=== PATIENT | female | born 1995 | race Caucasian/White ===

== ENCOUNTER 2020-07-14 18:09 | Emergency (ER) | payer OTHER, SELFPAY ==
--- NOTE | ~2020-07-14 | XR_ITS ---
EXAMINATION: XR CHEST CLINICAL INFORMATION: Syncope COMPARISON: 11/04/2019 TECHNIQUE: 2 views of the chest were obtained. FINDINGS: No significant abnormality is noted involving the heart, lungs, mediastinum, bony thorax or soft tissues. The last time the patient had a syncopal episode, the chest radiograph was normal as well. XR/XR chest 2V IMPRESSION: Normal chest radiograph.
--- NOTE | ~2020-07-14 | CT_ITS ---
EXAMINATION: CT HEAD WITHOUT CONTRAST CLINICAL INFORMATION: Syncope COMPARISON: None TECHNIQUE: Contiguous axial imaging was performed from the skull base to vertex without intravenous administration of contrast. This CT examination was performed using dose optimization techniques as appropriate, variously including the following: *Automated exposure control *Adjustment of mA and/or kV according to patient size (this includes techniques or standardized protocols for targeted exams where dose is matched to indication/reason for exam; i.e. extremities or head) *Use of iterative reconstruction technique DLP: 589 mGy-cm FINDINGS: There is no evidence of acute intracranial hemorrhage or territorial infarction. No abnormal mass effect or midline shift is seen. [place] to white matter differentiation is well preserved. No extra-axial fluid collections are identified. The ventricles are normal in size. There is no abnormal attenuation within the brain parenchyma. The osseous structures and soft tissues are normal. The mastoid air cells and visualized portions of the paranasal sinuses are well aerated. CT/CT head/brain wo con IMPRESSION: No acute intracranial pathology.
[2020-07-14 18:17] VITALS: BP 109/81; PULSE 77; RESP 18; TEMP 37.2; O2SAT 98; BMI 20.2
--- NOTE | 2020-07-14 19:22 | ECG_ITS ---
Test Reason : SYNCOPE Blood Pressure : / mmHG Vent. Rate : 072 BPM Atrial Rate : 072 BPM P-R Int : 108 ms QRS Dur : 078 ms QT Int : 372 ms P-R-T Axes : 050 052 036 degrees QTc Int : 407 ms Sinus rhythm with short [place] Otherwise normal ECG When compared with ECG of 04-NOV-2019 19:26, No significant change was found Referred By: Generic ED Physician Electronically Signed By:ESTEFANÍA EDUARDO
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
--- NOTE | 2020-07-14 20:32 | PC.NURSE ---
PT TO [facility] AT BEDSIDE. EKG OBTAINED. PT ARRIVES ALERT, RESPIRATIONS EASY, N/L. SKIN W/D.
[2020-07-14 20:51] LABS: MANUAL DIFF FLAG NO
[2020-07-14 20:52] LABS: Basophils Percent Auto 0.3 % (0-2); Eosinophils Absolute Auto 0.4 X10*3/uL (0.0-0.4); Eosinophils Percent Auto 5.3 % (0-4); Hematocrit 40.9 % (37-47); Hemoglobin 13.5 g/dl (12.0-16.0); Imm Gran Abs Auto 0.01 X10*3/uL (0.00-0.03); Imm Gran Pct Auto 0.2 % (0.0-0.4); Lymphocytes Percent Auto 30.2 % (20-40); Mean Corpuscular Hemoglobin 28.5 pg (27.0-33.0); Mean Corpuscular Volume 86.5 fL (80-98); Mean Platelet Volume 10.3 fL (9.4-12.3); Monocytes Absolute Auto 0.5 X10*3/uL (0.1-1.2); Monocytes Percent Auto 8.1 % (2-11); Neutrophils Absolute Auto 3.7 X10*3/uL (2.0-8.3); Neutrophils Percent Auto 55.9 % (45-73); Platelet Count 208 X10*3/uL (160-400); Red Blood Count 4.73 X10*6/uL (4.20-5.50); Red Cell Distribution Width 12.6 % (11.0-16.0); White Blood Count 6.7 X10*3/uL (4.8-10.8)
[2020-07-14 20:58] LABS: UPreg QC Valid YES; Urine Pregnancy NEGATIVE (NEGATIVE)
[2020-07-14 21:21] LABS: Anion Gap 13 (12-20); Blood Urea Nitrogen 8 mg/dL (9-16); Calcium 9.6 mg/dL (8.4-10.2); Carbon Dioxide 24 mmol/L (22-29); Chloride 107 mmol/L (96-108); Estimated Glomerular Filt Rate > 60; Glucose Random 85 mg/dL (60-115); Sodium 140 mmol/L (135-145)
[2020-07-14 21:23] LABS: Troponin-I High Sensitivity < 3.5 ng/L (<3.5-17.0)
[2020-07-14 21:23] LABS: Amphetamine Screen Urine Not Detected (Not Detect); Barbiturates, Urine Not Detected (Not Detect); Benzodiazepines Screen Urine Not Detected (Not Detect); Cannabinoid Screen Urine POSITIVE (Not Detect); Cocaine Screen Urine Not Detected (Not Detect); Opiate Screen Urine Not Detected (Not Detect); Phencyclidine Screen Urine Not Detected (Not Detect)
== END 2020-07-14 22:44 | disposition home or self-care (01) ==
PROVIDERS: Nurse Practitioner Primary Care; Emergency Provider Internal Medicine
DX: R55 Syncope and collapse (principal); F41.9 Anxiety disorder, unspecified; F12.90 Cannabis use, unspecified, uncomplicated
CPT/HCPCS: 36415; 70450; 71046; 80048; 80307; 81025; 84443; 84484; 85025; 93005; 99283; 99284

== ENCOUNTER 2022-12-06 17:46 | Emergency (ER) | payer OTHER, SELFPAY ==
[2022-12-06 18:00] VITALS: BP 129/72; PULSE 88; RESP 18; TEMP 36.7; O2SAT 99; BMI 23.0
--- NOTE | 2022-12-06 18:02 | ECG_ITS ---
Test Reason : EPIGASTRIC Blood Pressure : / mmHG Vent. Rate : 079 BPM Atrial Rate : 079 BPM P-R Int : 122 ms QRS Dur : 078 ms QT Int : 362 ms P-R-T Axes : 054 048 028 degrees QTc Int : 415 ms Normal sinus rhythm Normal ECG When compared with ECG of 14-JUL-2020 20:35, No significant change was found Referred By: Chip Vega Electronically Signed By:ABEBE SORIA
--- NOTE | 2022-12-06 18:02 | ED.GENADULT ---
HPI - General Adult General Chief complaint: Abdominal Pain Stated complaint: Stomach pain Time Seen by Provider: 12/06/22 20:09 Related Data Allergies Allergy/AdvReac Type Severity Reaction Status Date / Time dog dander [DOGS] Allergy Unknown UNKNOWN Verified 07/14/20 18:16 [facility] Social History Social History Advance Directives: No Advance Directives Information Provided: No Physical Exam ED Vital Signs: BMI result Body Mass Index 23.0 Course Course Course Narrative: This is an RME: Additional HPI, ROS, PE not included below will be deferred to primary provider. 27 yo F presents w/ sudden onset epigastri pain reports drinking alcohol last night. No n/v/d. No cardiac hx. Denies CP, sob, chances of preg, fevers, chills PE benign Medical Decision Making Lab Data 12/06/22 18:12 12/06/22 18:12 Labs: Lab Results 12/06/22 Range/Units 18:12 WBC 8.1 (4.8-10.8) X10*3/uL RBC 4.86 (4.20-5.50) X10*6/uL Hgb 13.6 (12.0-16.0) g/dl Hct 41.3 (37.0-47.0) % MCV 85.0 (80.0-98.0) fL MCH 28.0 (27.0-33.0) pg MCHC 32.9 (31.0-35.0) g/dl RDW 12.5 (11.0-16.0) % Plt Count 244 (160-400) X10*3/uL MPV 9.7 (9.4-12.3) fL Immature Gran % (Auto) 0.2 (0.0-0.4) % Neut % (Auto) 57.0 (45-73) % Lymph % (Auto) 28.9 (20-40) % [place] % (Auto) 8.0 (2-11) % Eos % (Auto) 5.8 H (0-4) % Baso % (Auto) 0.1 (0-2) % Lymph # (Auto) 2.4 (1.2-4.9) X10*3/uL [place] # (Auto) 0.7 (0.1-1.2) X10*3/uL Eos # (Auto) 0.5 H (0.0-0.4) X10*3/uL Baso # (Auto) 0.0 (0.0-0.2) X10*3/uL Abs Immat Gran (auto) 0.02 (0.00-0.03) X10*3/uL Absolute Neuts (auto) 4.6 (2.0-8.3) x10*3/uL Absolute Nucleated RBC 0.000 (0.0-0.012) X10*3/uL Nucleated RBC % (auto) 0.0 (0.0-0.2) /100WBC Sodium 138 (135-145) mmol/L Potassium 3.5 (3.3-5.1) mmol/L Chloride 105 (96-108) mmol/L Carbon Dioxide 26 (22-29) mmol/L Anion Gap 11 L (12-20) BUN 12 (9-16) mg/dL Creatinine 0.79 (0.5-1.4) mg/dL Estim Creat Clear Calc 76.4 Estimated GFR > 60 Random Glucose 90 (60-115) mg/dL Calcium 9.6 (8.4-10.2) mg/dL Magnesium 2.1 (1.6-2.6) mg/dL Total Bilirubin 0.3 (0.0-1.0) mg/dL AST 17 (5-31) U/L ALT 7 (0-31) U/L Alkaline Phosphatase 56 (39-117) U/L Troponin I High Sens < 2.7 (<3.5-17.0) ng/L Total Protein 7.2 (6.5-8.0) g/dL Albumin 4.4 (3.5-5.0) g/dL Lipase 28 (8-78) U/L Beta HCG, Quant < 2 mIU/mL Ethyl Alcohol < 10 mg/dL Discharge Plan Discharge Clinical Impression: Eloped from emergency department Patient Disposition: Left W/O Completing Treatment Discharge Date/Time: 12/06/22 21:35
--- OUTSIDE RECORDS SUMMARY | 2022-12-06 18:14 | XMS_ITS | Patient Health Record ---
Author Name Unknown Organization [facility] Address [address] [place] [address] Care Team Providers Care Employment And Claims Aide Name Role Phone OmidjoelleVito Unavailable [phone] ALLERGIES No Known Allergies REASON FOR REFERRAL No Information SOCIAL HISTORY Sex Assigned At : Social History Observation Description Sex Assigned At Unknown PROBLEMS Problem Type ICD Code Onset Dates Problem Status W/U Status Risk SNOMED Code Notes Problem Allergic rhinitis, unspecified (J30.9) Active confirmed Allergic rhinitis (88698902) Encounters Encounter Location Date Provider Diagnosis [facility] [address] [place] [address] 04/08/2022 Vito Mckeon PLAN OF TREATMENT No Information Insurance Providers Payer Name Payer Address Payer Phone Subscriber Number Group Number Insured Name Patient Relationship to Insured Coverage Start Date Coverage End Date [facility] [employer] [address] [address] [place] [address] [id number] Jessica Lara Self - patient is the insured
[2022-12-06 18:16] LABS: MANUAL DIFF FLAG NO
[2022-12-06 18:28] LABS: Basophils Percent Auto 0.1 % (0-2); Eosinophils Absolute Auto 0.5 X10*3/uL (0.0-0.4); Eosinophils Percent Auto 5.8 % (0-4); Hematocrit 41.3 % (37.0-47.0); Hemoglobin 13.6 g/dl (12.0-16.0); Imm Gran Abs Auto 0.02 X10*3/uL (0.00-0.03); Imm Gran Pct Auto 0.2 % (0.0-0.4); Lymphocytes Absolute Auto 2.4 X10*3/uL (1.2-4.9); Lymphocytes Percent Auto 28.9 % (20-40); Mean Corpuscular HGB Conc 32.9 g/dl (31.0-35.0); Mean Platelet Volume 9.7 fL (9.4-12.3); Monocytes Absolute Auto 0.7 X10*3/uL (0.1-1.2); Neutrophils Absolute Auto 4.6 x10*3/uL (2.0-8.3); Platelet Count 244 X10*3/uL (160-400); Red Blood Count 4.86 X10*6/uL (4.20-5.50); Red Cell Distribution Width 12.5 % (11.0-16.0); White Blood Count 8.1 X10*3/uL (4.8-10.8)
[2022-12-06 18:30] LABS: Ethanol < 10 mg/dL
[2022-12-06 18:40] LABS: Alanine Aminotransferase 7 U/L (0-31); Albumin Level 4.4 g/dL (3.5-5.0); Alkaline Phosphatase 56 U/L (39-117); Anion Gap 11 (12-20); Aspartate Amino Transferase 17 U/L (5-31); Bilirubin Total 0.3 mg/dL (0.0-1.0); Blood Urea Nitrogen 12 mg/dL (9-16); Calcium 9.6 mg/dL (8.4-10.2); Carbon Dioxide 26 mmol/L (22-29); Chloride 105 mmol/L (96-108); Creatinine Clr Calc Pharmacy 76.4; Estimated Glomerular Filt Rate > 60; Glucose Random 90 mg/dL (60-115); Lipase 28 U/L (8-78); Magnesium 2.1 mg/dL (1.6-2.6); Potassium 3.5 mmol/L (3.3-5.1); Sodium 138 mmol/L (135-145); Total Protein 7.2 g/dL (6.5-8.0)
[2022-12-06 18:41] LABS: HCG Quantitative < 2 mIU/mL; Troponin-I High Sensitivity < 2.7 ng/L (<3.5-17.0)
== END 2022-12-06 21:35 | disposition left against medical advice (07) ==
PROVIDERS: Physician Assistant; Emergency Provider Emergency Medicine
DX: R07.89 Other chest pain (principal); R10.13 Epigastric pain; Z79.899 Other long term (current) drug therapy
CPT/HCPCS: 36415; 80053; 80307; 83690; 83735; 84484; 84702; 85025; 93005; 99283

== ENCOUNTER 2024-11-30 10:46 | Emergency (ER) | payer OTHER, SELFPAY ==
--- NOTE | ~2024-11-30 | XR_ITS ---
CLINICAL HISTORY: ? fb rt thumb Three-view right 1st digit Comparison: None Findings: Bones intact. No dislocations. No significant loss of joint space or osteophytes. No erosions. No radiopaque foreign body. IMPRESSION: There is no radiopaque foreign body. This document has been electronically signed by: Josey Monsivais MD on 11/30/2024 13:25:36
[2024-11-30 10:52] VITALS: BP 116/58; PULSE 81; RESP 16; TEMP 36.1; O2SAT 97; BMI 28.1
--- OUTSIDE RECORDS SUMMARY | 2024-11-30 11:43 | XMS_ITS | Clinical Summary ---
Author Organization [facility] Address [address] [place] [address] Care Team Providers Care Computer Hardware Designer Name Role Phone Pcp, No Primary Care Provider Unavailabl e Allergies No known active allergies Medications guaiFENesin-dext romethorphan (guaiFENesin-dex tromethorphan) 100-10 mg/5 mL syrup Take 10 mL by mouth every 4 (four) hours as needed (cough). 120 mL 06/01/2019 Active Social History Tobacco Use Types Packs/Day Years Used Date Smoking Tobacco: Never Smokeless Tobacco: Never Alcohol Use Standard Drinks/Week Comments Not Currently 0 (1 standard drink = 0.6 oz pur e alcohol) Comments Unknown Sex and Gender Information Value Date Recorded Sex Assigned at Not on file Legal Sex Female 5:54 AM EDT Gender Identity Not on file Sexual Orientation Not on file Last Filed Vital Signs Vital Sign Reading Time Taken Comments Blood Pressure 108/59 10/27/2021 4:29 PM EDT Pulse 106 10/27/2021 4:29 PM EDT Temperature 36.9 C (98.5 F) 10/27/2021 12:22 PM EDT Respiratory Rate 17 10/27/2021 4:29 PM EDT Oxygen Saturation 98% 10/27/2021 4:29 PM EDT Inhaled Oxygen Concentration - - Weight 44 kg (97 lb) 12/22/2020 4:54 AM EDT Height 147.3 cm (4' 10 ) 12/22/2020 4:54 AM EDT Body Mass Index 20.27 12/22/2020 4:54 AM EDT Plan of Treatment Health Maintenance Due Date Last Done Comments Hepatitis C Virus Screening 1997 HIV Screening 2010 DTaP/Tdap/Td Vaccines (1 - Tdap) 2016 Hepatitis B Vaccines (1 of 3 - 19+ 3-dose series) 2016 Pap Smear (Ages 21-65) 2018 Influenza Vaccine 10/11/2024 HPV Vaccines (1 - 3-dose SCD M series) 2024 COVID-19 Vaccine (1 - 2023-2 5 season) 2024 Pneumococcal Vaccine: Pediat anthony (0-5 Years) and At-Risk Patients (6 to 49 Years) Aged Out No longer eligible b ased on patient's age to complete this topic Insurance MEDICAID OUT OF STATE [facility] [address] [place] [id number] [facility] HMO/POS [facility] Care Teams Computer Hardware Designer Relationship Specialty Start Date End Date Pcp, Jessica PCP - General General Medicine 10/27/21
--- OUTSIDE RECORDS SUMMARY | 2024-11-30 11:43 | XMS_ITS ---
Author Name [facility] Organization Unknown Encounters Encounter Type Encounter Reason Primary Diagnosis Location Date Emergency Chest pain, unspecified [email or web address] 10/27/2021 Emergency Unspecified abdo gonzález pain [facility] 12/22/2020 Care Team Organization Name Specialty Phone Email Start Date End Da velia [facility] Darlin Price Primary Care 01/18/2022 [facility] 10/27/2021 [facility] NO PCP Primary Care 12/22/2020 10/27/2021
--- OUTSIDE RECORDS SUMMARY | 2024-11-30 11:43 | XMS_ITS | Clinical Summary ---
Author Organization [facility] Address [address] [place] [phone] Care Team Providers Care Pipe Washer Name Role Phone Hayden Herbert APRN Primary Care Provider Allergies No known active allergies Medications ergocalciferol (ERGOCALCIFEROL ) 1,250 mcg (50,000 unit) capsuleIndicati ons:Vitamin D deficiency Take 1 capsule (50,000 Units total) by mouth once a week. 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 Marijuana use 04/07/2022 Immunizations Immunization Administration Dates Next Due Influenza, injectable, quadrivalent, preservativ e free 02/02/2022 Tdap 02/02/2022 Family History Medical History Relation Name Comments Diabetes Father Blindness Maternal Grandfather Cervical cancer Mother Heart disease Other Diabetes Paternal Aunt 1 Diabetes Paternal Aunt 2 Diabetes Paternal Aunt 3 Diabetes Paternal Aunt 4 Relation Name Status Comments Father Maternal Grandfather Mother Other greatgrand pare nts- maternal (1st cousins) Paternal Aunt 1 Paternal Aunt 2 Alive Paternal Aunt 3 Alive Paternal Aunt 4 Alive Social History Tobacco Use Types Packs/Day Years Used Date Smoking Tobacco: Never Smokeless Tobacco: Never Alcohol Use Standard Drinks/Week Comments Yes 0 (1 standard drink = 0.6 oz pur e alcohol) once a month PHQ-2 Answer Date Recorded PHQ-2 Total Score 2 02/02/2022 Comments No Sex and Gender Information Value Date Recorded Sex Assigned at Not on file Legal Sex Female 10:17 AM EST Gender Identity Not on file Sexual Orientation Not on file Last Filed Vital Signs Vital Sign Reading Time Taken Comments Blood Pressure 98/61 02/02/2022 10:18 AM EST Pulse 72 02/02/2022 10:18 AM EST Temperature 36.8 C (98.2 F) 02/02/2022 10:18 AM EST Respiratory Rate - - Oxygen Saturation 98% 02/02/2022 10:18 AM EST Inhaled Oxygen Concentration - - Weight 44.3 kg (97 lb 9.6 oz) 02/02/2022 10:18 A M EST Height 151 cm (4' 11.45 ) 02/02/2022 10:18 AM ES T Body Mass Index 19.42 02/02/2022 10:18 AM EST Plan of Treatment Health Maintenance Due Date Last Done Comments Cervical cancer screening 2018 Covid-19 vaccine series () 11/11/2024 Influenza vaccine 11/11/2024 02/02/2022 Tetanus adult (Td q 10,TDAP once) 02/03/2032 022 RSV Immunization (1 - 1-dose 75+ series) 2072 Chlamydia screening Discontinued 02/02/2022 HIV screening Completed 02/02/2022 Hepatitis C screening Completed 02/02/2022 Meningococcal B Vaccine Aged Out No l onger eligible based on patient's age to complete this topic Meningococcal Vaccine Aged Out No soco magalis eligible based on patient's age to complete this topic Pneumococcal Vaccine (2 - 49 years) Aged Out No longer eligible b ased on patient's age to complete this topic Procedures Procedure Name Priority Date/Time Associated Diagnosis Comments HIV 1/2 AG/AB, W/REFLEXES (Q) Routine 02/02/2022 11:44 AM EST Screen for STD (sexually transmitted disease) C. TRACHOMATIS/N. GONORRHOEAE RNA BY TMA (Q) Routine 02/02/2022 11:44 AM EST Screen for STD (sexually transmitted disease) HEPATITIS C AB WITH REFLEX TO HCV PCR Routine 02/02/2022 11:44 AM EST Screen for STD (sexually transmitted disease) from Last 3 Months or Most Recently Relevant to Health Maintenance Results * HIV 1/2 ag/ab, w/reflexes (Q) (02/02/2022 11:44 AM EST) HIV Ag/Ab, 4th Generation NON-REACT KIM NON-REACT KIM [facility] Comment: HIV-1 antigen and HIV-1/HIV-2 antibodies were not detected. There is no laboratory evidence of HIV infection. PLEASE NOTE: This information has been disclosed to you from records whose confidentiality may be protected by state law. If your state requires such protection, then the state law prohibits you from making any further disclosure of the information without the specific written consent of the person to whom it pertains, or as otherwise permitted by law. A general authorization for the release of medical or other information is NOT sufficient for this purpose. For additional information please refer to http://education.Questetra/faq/XVK111 (This link is being provided for informational/ educational purposes only.) The performance of this assay has not been clinically validated in patients less than 2 years old. Blood 02/02/2022 11:4 4 AM EST 02/02/2022 11:45 AM EST [facility] - 02/04/2022 2:33 PM EST FASTING:NO FASTING: NO Resulting Agency Comment Performing Lab: Site ID: [id number] Name: [facility] Address: [address] [place] [address], [facility] [place] [address] Director: Katt Phillips M.D. us Hayden Herbert SENIOR LIVING ADVISOR LAB BLOOD ORDERABLES Fi nal Result [facility] [address] [place] [id number] * C. trachomatis/N. gonorrhoeae RNA by TMA, (Q) (02/02/2022 11:44 AM EST) C. trachomatis RNA, TMA NOT DETECTED NOT DETECTED [facility] Neisseria gonorrhoeae RNA, TMA NOT DETECTED NOT DETECTED [facility] Comment [facility] Comment: The analytical performance characteristics of this assay, when used to test SurePath(TM) specimens have been determined by [facility]. The modifications have not been cleared or approved by the FDA. This assay has been validated pursuant to the CLIA regulations and is used for clinical purposes. For additional information, please refer to https://education.Questetra/faq/LPY777 (This link is being provided for information/ educational purposes only.) Culture URINE SPECIMEN / Unknown 02/02/2022 11:44 AM EST 02/02/2022 11:45 AM EST Narrative [facility] - 02/04/2022 2:33 PM EST FASTING:NO FASTING: NO Resulting Agency Comment Performing Lab: Site ID: [id number] Name: [facility] Address: [address] [place] [address], [place] [address] Director: Katt Phillips M.D. Hayden Herbert SENIOR LIVING ADVISOR MICROBIOLOGY - GENERAL ORDERABLES Final Result [facility] [address] [place] [address] * Hepatitis C Ab with reflex to HCV PCR (02/02/2022 11:44 AM EST) Hepatitis C Ab NON-REACT KIM NON-REACT KIM [facility] Signal To Cut-Off 0.03 <1.00 [facility] Comment: HCV antibody was non-reactive. There is no laboratory evidence of HCV infection. In most cases, no further action is required. However, if recent HCV exposure is suspected, a test for HCV RNA (test code 17816) is suggested. For additional information please refer to http://education.[employer].WoofRadar/faq/WUD76x2 (This link is being provided for informational/ educational purposes only.) Blood 02/02/2022 11:4 4 AM EST 02/02/2022 11:45 AM EST Narrative [facility] - 02/04/2022 2:33 PM EST FASTING:NO FASTING: NO Resulting Agency Comment Performing Lab: Site ID: [id number] Name: [facility] Address: [address] [place] [address], [place] [address] Director: Katt Phillips M.D. us Hayden Oseguera Piedad SENIOR LIVING ADVISOR LAB BLOOD ORDERABLES Fi nal Result [facility] [address] [place] [address] from Last 3 Months or Most Recently Relevant to Health Maintenance Insurance Care Teams Pipe Washer Relationship Specialty Start Date End Date Hayden Herbert APRN [address] [place] [phone] PCP - General 11/25/21
--- OUTSIDE RECORDS SUMMARY | 2024-11-30 11:43 | XMS_ITS | Clinical Summary ---
Author Organization [facility] Address [address] [place] [address] Care Team Providers Care Family Consumer Science Fcs Teacher Name Role Phone Blu Del Angel MD Primary Care Provider Blu Connolly MD Unavailable Unavailable Active Problems Problem Noted Date Diagnosed Date Acute upper respiratory infection 05/31/2019 Social History Tobacco Use Types Packs/Day Years Used Date Smoking Tobacco: Never Assessed Comments Unknown Sex and Gender Information Value Date Recorded Sex Assigned at Not on file Legal Sex Female 12:05 PM EDT Gender Identity Not on file Sexual Orientation Not on file Last Filed Vital Signs Vital Sign Reading Time Taken Comments Blood Pressure 104/60 05/31/2019 11:24 AM EDT Pulse 82 05/31/2019 11:24 AM EDT Temperature 37.1 C (98.8 F) 05/31/2019 11:24 AM EDT Respiratory Rate 17 05/31/2019 11:24 AM EDT Oxygen Saturation 98% 05/31/2019 11:24 AM EDT Inhaled Oxygen Concentration - - Weight 42.6 kg (94 lb 0.1 oz) 05/31/2019 11:24 A M EDT Height - - Body Mass Index - - Plan of Treatment Health Maintenance Due Date Last Done Comments Hepatitis C Screening 1997 Pap Smear 2013 DTaP/Tdap/Td (1 - Tdap) 11/08/2015 Hep B (1 of 3 - 19+ 3-dose series) 2016 COVID-19 Vaccine (2023-2 5 season) 2024 Influenza (#1) 2024 Zoster (Shingrix) (1 of 2) 11/08/2047 HPV Vaccine (No Doses Required) Completed Hep A Aged Out No longer eligi ble based on patient's age to complete this topic Hib Aged Out No longer eligi ble based on patient's age to complete this topic Meningococcal ACWY Aged Out No longer eligible based on patient's age to complete this topic Pneumococcal Aged Out No longer eligi ble based on patient's age to complete this topic Care Teams Family Consumer Science Fcs Teacher Relationship Specialty Start Date End Date Blu Del Angel MD PCP - General 10/17/22 Blu Del Angel MD PCP - Backup PCP Family Medicine 04/12/23
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
--- NOTE | 2024-11-30 11:47 | ED_ITS ---
HPI - Wound/Laceration General Chief Complaint: Wound/Laceration Stated Complaint: cut right thumb Time Seen by Provider: 11/30/24 11:11 Source: patient Mode of arrival: ambulatory Limitations: no limitations History of Present Illness ED Provider: Queta Chan APRN HPI narrative: 29-year-old female who is right-hand dominant with no known medical history whose tetanus is up-to-date presents to the ER with complaints of laceration to the right thumb. Patient reports that she was putting trash into a trash. The while working and a piece of metal cut her right hand. She reports some pain and discomfort site as well as bleeding. She denies any associated weakness, numbness or tingling of the extremity. Related Data Allergies Allergy/AdvReac Type Severity Reaction Status Date / Time dog dander (DOGS) Allergy Unknown UNKNOWN Verified 11/30/24 10:52 Review of Systems 2 Review of Systems: Yes all other systems are reviewed and are negative Constitutional: Constitutional: Reports no additional constitutional complaints, Denies body ache(s), Denies chills, Denies fever(s), Denies headache(s) and Denies weakness Eyes: Eyes: Reports no additional eye complaints and Denies change in vision ENT: Reports system reviewed and no additional complaints, except as documented, Denies dizziness, Denies headache(s), Denies nasal congestion, Denies nasal discharge and Denies neck pain Cardiovascular: Cardiovascular: Reports no additional cardiovascular complaints, Denies chest pain, Denies leg edema and Denies dyspnea Respiratory: Respiratory: Reports no additional respiratory complaints, Denies cough and Denies dyspnea Gastrointestinal: Gastrointestinal: Reports no additional gastrointestinal complaints, Denies abdominal pain, Denies diarrhea, Denies nausea and Denies vomiting Genitourinary: Genitourinary: Reports no additional female genitourinary complaints and Denies urinary incontinence Musculoskeletal: Musculoskeletal: Reports no additional musculoskeletal complaints, Denies back pain, Denies arthralgias, Denies joint swelling, Denies neck pain, Denies numbness and Denies tingling Integumentary/Breasts: Skin/Breast: Reports system reviewed and no additional complaints, except as docu, Denies rash and Reports wounds Neurologic: Reports system reviewed and no additional complaints, except as documented, Denies Abnormal speech present, Denies dizziness, Denies headache(s), Denies numbness, Denies tingling and Denies weakness [facility] Past Medical History Attestation statement: The following information was validated with the patient. Source: old records reviewed and nursing notes reviewed Social History Social History Advance Directives: No Advance Directives Information Provided: Yes Do you have a plan to hurt others: No Plan Physical Exam 2 Vital Signs: Vital Signs: Last Vital Signs Temp 97.0 F 11/30/24 12:12 Pulse 81 11/30/24 12:12 Resp 16 11/30/24 12:12 BP 116/58 L 11/30/24 12:12 Pulse Ox 97 11/30/24 12:12 O2 Del Method Room Air 11/30/24 12:12 BMI result Body Mass Index 28.1 Const: General: cooperative, healthy appearing, comfortable and no acute distress Orientation/consciousness: patient oriented x3 Limitations: no limitations HEENT: Head: Yes normal to inspection Ears: hearing grossly normal bilaterally General nose exam: Normal external nose present Face and sinus: Yes normal facial exam Mouth: Normal oral and palatal mucosa present Throat: Yes posterior oropharynx normal Eyes: General: appearance normal, both eyes and all related structures P upils: Equal, round and reactive pupils present Neck: Neck: Yes normal visual inspection Chest: Chest palpation & inspection: normal inspection of the chest Resp: Effort & Inspection: normal respiratory effort Auscultation: clear to auscultation bilaterally Cardio: Rate: regular rate Rhythm: regular rhythm Peripheral pulses: P eripheral pulses 2+ throughout GI: Inspection: Yes normal to inspection Palpation (GI): Soft to palpation and nontender Auscultation: normal bowel sounds Back/Spine/Pelvis: Thoracic/Lumbar Spine: thoracic and lumbar spine normal to inspection Skin: General skin exam: no rashes or lesions noted Neuro: General: patient oriented x3, no focal motor deficits and normal sensation to monofilament Cranial nerves: Yes Equal, round and reactive pupils present Cognition (Neuro): normal cognition Speech: No Abnormal speech present Gait exam (Neuro): Normal gait present Motor exam (neuro): 5/5 motor strength present throughout Extrem: General: Yes normal to inspection Hand/finger images: 1. 2cm superficial laceration with edges approximated. No active bleeding. Full active and passive range of motion of the extremity. Sensation is intact. Medical Decision Making Medical Decision Making [facility] Narrative: 29-year-old female who is right-hand dominant with no known medical history whose tetanus is up-to-date presents to the ER with complaints of laceration to the right thumb. Patient reports that she was putting trash into a trash. The while working and a piece of metal cut her right hand. She reports some pain and discomfort site as well as bleeding. She denies any associated weakness, numbness or tingling of the extremity. 2cm superficial laceration with edges approximated. No active bleeding. Full active and passive range of motion of the extremity. Sensation is intact. X-ray ordered from triage to r/o FB See procedure note for closure Differential Diagnosis Differential Diagnoses: The differential diagnosis associated with the presentation includes Laceration, foreign body Low suspicion for fracture, vascular injury, tendon injury Admission/Observation Consideration of admission/observation: Escalation of care including admission/observation considered Independent Interpretation I performed an independent interpretation of an: Plain X-Ray Interpretation: I independently reviewed the x-ray which shows no foreign body Radiology Impression Discussion of test interpretation with radiology: I have reviewed the radiologist's reading. Radiologist Impression: [address] [address] XRay Report Signed Patient: Jessica Lara MR#: [id number] : 1995 Acct:[id number] Age/Sex: 29 / F ADM Date: 11/30/24 Loc: .ED Attending Dr: Ordering Physician: Delio Guzman MD Date of Service: 11/30/24 Procedure(s): XR finger RT min 2V Accession Number(s): [id number] cc: Delio Guzman MD; Physician,Unknown ~ Reason for Exam: ? fb rt thumb CLINICAL HISTORY: ? fb rt thumb Three-view right 1st digit Comparison: None Findings: Bones intact. No dislocations. No significant loss of joint space or osteophytes. No erosions. No radiopaque foreign body. IMPRESSION: There is no radiopaque foreign body. This document has been electronically signed by: Josey Monsivais MD on 11/30/2024 13:25:36 Prescription Management I considered prescription management with: Antibiotic Procedures Laceration Laceration 1: Site: hand (1st digit ) Side (If applicable): right Size (cm): 2 Description: linear Depth: simple, single layer Pre-repair: wound explored and irrigated extensively (1 L NS-adhesive glue/steri strips applied) Discharge Plan Discharge Clinical Impression: Laceration Patient Disposition: Home, Self-Care Instructions: Finger Laceration (ED), Skin Adhesive Care (ED), Skin Adhesive Strips (ED) Additional Instructions: Your x-ray shows no signs of metal under the skin The formal radiology report is still pending and we will call you if this is different. Take Motrin or Tylenol for pain as needed Keep the wound clean covered and dry You may use the finger splint for the next few days to avoid flexing the finger. Return for signs of infection which include redness, drainage, swelling Referrals: Physician,Cristal J [Primary Care Provider, Medical] Stand Alone Forms: Work/School Release Interventions: ED Discharge Assessment Last Done: 11/30/24 12:12 Discharge Date/Time: 11/30/24 12:12 Print Language: Prydeinig
[2024-11-30 12:12] VITALS: BP 116/58; PULSE 81; RESP 16; TEMP 36.1; O2SAT 97
== END 2024-11-30 12:12 | disposition home or self-care (01) ==
PROVIDERS: Emergency Provider Emergency Medicine
DX: S61.011A Laceration without foreign body of right thumb without damage to nail, initial encounter (principal); W26.8XXA Contact with other sharp object(s), not elsewhere classified, initial encounter; Y93.89 Activity, other specified; Y92.89 Other specified places as the place of occurrence of the external cause; Y99.0 Civilian activity done for income or pay
CPT/HCPCS: 12001; 73140; 99282; 99284

== ENCOUNTER → 2024-11-30 11:05 | Outpatient (BNV) | payer OTHER, SELFPAY | PROVIDERS: Emergency Provider Emergency Medicine; Visit Provider Radiology Diagnostic Radiology | DX: S61.011A Laceration without foreign body of right thumb without damage to nail, initial encounter (principal) | CPT/HCPCS: 73140 ==